=== PATIENT | male | born 1960 | race Caucasian/White ===

== ENCOUNTER → 2021-02-24 15:16 | Outpatient (BNVA) | payer MEDICAID, SELFPAY | PROVIDERS: Visit Provider Nurse Practitioner Family | DX: R76.8 Other specified abnormal immunological findings in serum (principal); Z87.898 Personal history of other specified conditions; F17.200 Nicotine dependence, unspecified, uncomplicated | CPT/HCPCS: 80053; 86705; 86706; 86709; 86803; 87340; 87522; 87902 ==

== ENCOUNTER → 2021-03-16 13:00 | Outpatient (BNVA) | payer MEDICAID, SELFPAY | PROVIDERS: Visit Provider Psychiatry & Neurology Psychiatry | DX: F15.20 Other stimulant dependence, uncomplicated (principal); F11.20 Opioid dependence, uncomplicated | CPT/HCPCS: 99204 ==

== ENCOUNTER 2024-10-02 11:59 | Inpatient (IN) | payer MEDICAID, SELFPAY ==
[2024-10-02] VITALS (11 sets, daily range): BP systolic 123–158; BP diastolic 54–78; PULSE 60–79; RESP 14–22; TEMP 36.6–37.4; O2SAT 74–97; BMI 22.6
--- OUTSIDE RECORDS SUMMARY | 2024-10-02 12:05 | XMS_ITS | Encounter Summary ---
Author Organization [email or web address] [facility] Address [address] [facility] Attn: Epic Prelude ADT NEDA SHAFER [address] Care Team Providers Care It Systems Analyst Consultant Name Role Phone Gui Wong Primary Care Provider Unavailabl e Encounter Details Date Type Department Care Team (Late st Contact Info) Description 09/27/2000 Outpatient Historical Dano Glass MD [address] [place] [address] Social History Tobacco Use Types Packs/Day Years Used Date Smoking Tobacco: Never Assessed Sex and Gender Information Value Date Recorded Sex Assigned at Not on file 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
--- OUTSIDE RECORDS SUMMARY | 2024-10-02 12:05 | XMS_ITS | Encounter Summary ---
Author Organization [facility] Address [address] [place] [address] Care Team Providers Care Music Producer Name Role Phone Gui Wong Primary Care Provider Unavailabl e Reason for Referral * Outpatient Services (Routine) - Closed Specialty Diagnoses / Procedures Referred By Contac t Referred To Contact Diagnoses Neck pain Low back pain Procedures MRI LUMBAR WO CONTRAST [facility] Mobile MRI [address] [place] [address] Phone: tel: fax: Referral ID Status Reason Start Date Expiration Date Visits Re quested Visits Authorized [id number] Closed 09/29/2009 03/28/2010 1 1 * Outpatient Services (Routine) - Closed Specialty Diagnoses / Procedures Referred By Contac t Referred To Contact Diagnoses Neck pain Procedures MRI CERVICAL WO CONTRAST [facility] MRI [address] [place] [address] Phone: tel: fax: Referral ID Status Reason Start Date Expiration Date Visits Re quested Visits Authorized [id number] Closed 09/29/2009 03/28/2010 1 1 Encounter Details Date Type Department Care Team (Late st Contact Info) Description 09/29/2009 Ancillary Orders [facility] MRI [address] [place] [address] [facility], External Provider [address] [place] [id number] Neck Pain; Low Back Pain Social History Tobacco Use Types Packs/Day Years Used Date Smoking Tobacco: Never Assessed Sex and Gender Information Value Date Recorded Sex Assigned at Not on file 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 Mild disc protrusion on the left at L4-L5 could cause intermittent impingement upon the left L4 and/or L5 nerves. 2. Mild central disc protrusion is present at L5-S1. Narrative 09/30/2009 12:42 PM CDT Exam: MRI LUMBAR WO CONTRAST Date/Time of Exam: Sep 30, 2009 11:21:00 AM History: NECK PAIN. Technique: MRI of the lumbar spine was performed without the administration of intravenous contrast. The lumbar spine is normal in sagittal alignment. The cauda equina and conus medullaris appear normal. No intradural disease is present. STIR images show no sites of abnormal signal throughout the lumbar spine. The paraspinal tissues are unremarkable. L1-L2: Normal. L2-L3: Normal. L3-L4: Normal. L4-L5: A moderate diffuse bulge of the disc is present. Small disc extrusion is present in the left foraminal zone causing mild foraminal and recess stenoses. L5-S1: Small central disc protrusion is present. Procedure Note Garrick Bhatti MD - 09/30/2009 Exam: MRI LUMBAR WO CONTRAST Date/Time of Exam: Sep 30, 2009 11:21:00 AM History: NECK PAIN. Technique: MRI of the lumbar spine was performed without the administration of intravenous contrast. The lumbar spine is normal in sagittal alignment. The cauda equina and conus medullaris appear normal. No intradural disease is present. STIR images show no sites of abnormal signal throughout the lumbar spine. The paraspinal tissues are unremarkable. L1-L2: Normal. L2-L3: Normal. L3-L4: Normal. L4-L5: A moderate diffuse bulge of the disc is present. Small disc extrusion is present in the left foraminal zone causing mild foraminal and recess stenoses. L5-S1: Small central disc protrusion is present. IMPRESSION Impression: 1. Mild disc protrusion on the left at L4-L5 could cause intermittent impingement upon the left L4 and/or L5 nerves. 2. Mild central disc protrusion is present at L5-S1. us External Provider [facility] MR ORDERABLES Final Resu lt * MRI CERVICAL WO CONTRAST (09/30/2009 11:21 AM CDT) Anatomical Region Laterality Modality Spine Magnetic Resonan ce 09/30/2009 10:2 6 AM CDT Narrative 09/30/2009 12:47 PM CDT Exam: MRI CERVICAL WO CONTRAST Date/Time of Exam: Sep 30, 2009 11:21:00 AM History: NECK PAIN. Technique: MRI of the cervical spine was performed without the administration of intravenous contrast. The cervical spine is normal in sagittal alignment. The posterior fossa has a normal appearance. The foramen magnum and cervical cord appear normal. No intradural disease is present. STIR images show no sites of abnormal signal. The paraspinal tissues are show a 14 mm lesion posteriorly in the right lobe of the thyroid. Skull base to C3: Normal. C3-C4: Unremarkable. C4-C5: Normal. C5-C6: Moderate diffuse spondylosis is present. Moderate bilateral foraminal stenoses are present. C6-C7: Moderate diffuse spondylosis is present causing mild bilateral foraminal stenoses. C7-T1: Unremarkable. Impressions: 1. Degenerative disc changes and moderate spondylosis are present at C5-C6 and C6-C7. Moderate foraminal stenoses are present at C5-C6 and mild foraminal stenoses are present at C6-C7. 2. A 14 mm lesion is present in the right lobe of the thyroid gland. Further evaluation and followup with ultrasound might be worthwhile. Procedure Note Garrick Bahtti MD - 09/30/2009 Exam: MRI CERVICAL WO CONTRAST Date/Time of Exam: Sep 30, 2009 11:21:00 AM History: NECK PAIN. Technique: MRI of the cervical spine was performed without the administration of intravenous contrast. The cervical spine is normal in sagittal alignment. The posterior fossa has a normal appearance. The foramen magnum and cervical cord appear normal. No intradural disease is present. STIR images show no sites of abnormal signal. The paraspinal tissues are show a 14 mm lesion posteriorly in the right lobe of the thyroid. Skull base to C3: Normal. C3-C4: Unremarkable. C4-C5: Normal. C5-C6: Moderate diffuse spondylosis is present. Moderate bilateral foraminal stenoses are present. C6-C7: Moderate diffuse spondylosis is present causing mild bilateral foraminal stenoses. C7-T1: Unremarkable. Impressions: 1. Degenerative disc changes and moderate spondylosis are present at C5-C6 and C6-C7. Moderate foraminal stenoses are present at C5-C6 and mild foraminal stenoses are present at C6-C7. 2. A 14 mm lesion is present in the right lobe of the thyroid gland. Further evaluation and followup with ultrasound might be worthwhile. us External Provider [facility] MR ORDERABLES Final Resu lt documented in this encounter Visit Diagnoses Diagnosis Neck pain Cervicalgia Low back pain Lumbago documented in this encounter Care Teams Music Producer Relationship Specialty Start Date End Date Gui Wong NO ADDRESS ON FILE PCP - General 03/23/14 05/01/16 documented as of this encounter
--- OUTSIDE RECORDS SUMMARY | 2024-10-02 12:05 | XMS_ITS | Encounter Summary ---
Author Organization [facility] Address [address] [place] [address] Care Team Providers Care Supervisor Pipeline Name Role Phone Gui Wong Primary Care Provider Unavailabl e Encounter Details Date Type Department Care Team (Late st Contact Info) Description 06/16/2014 Ancillary Orders [facility] Admitting [address] [place] [address] Beth Caraballo, [address] [place], [place] [id number] Neck pain (Primary Dx); Lumbar pain Social History Tobacco Use Types Packs/Day Years Used Date Smoking Tobacco: Every Day Cigarettes 1 40 Smokeless Tobacco: Never Alcohol Use Standard Drinks/Week Comments Yes 0 (1 standard drink = 0.6 oz pur e alcohol) beer Sex and Gender Information Value Date Recorded Sex Assigned at Not on file 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 Vertebral body and disc space heights are maintained. There is mild sclerosis apophyseal joints at L5-S1. IMPRESSION 1. mild osteoarthritis 2. no acute changes seen Procedure Note Donald Silva MD - 06/16/2014 PROCEDURE XR LUMBAR SPINE, 3 views, 16 Jun 2014 DESCRIPTION AP and lateral lumbar spine views and collimated lateral L5-S1 projection show no acute fracture or spondylolisthesis. Vertebral body and disc space heights are maintained. There is mild sclerosis apophyseal joints at L5-S1. IMPRESSION 1. mild osteoarthritis 2. no acute changes seen [facility] DIAGNOSTIC IMAGING ORDERA BLES Final Result * XR CERVICAL SPINE 2 OR 3 VIEWS (06/16/2014 10:54 AM CDT) Anatomical Region Laterality Modality Spine Computed Radiogr aphy 06/16/2014 10:4 1 AM CDT Narrative 06/16/2014 11:51 AM CDT PROCEDURE CERVICAL SPINE SERIES, 3 views, 16 Jun 2014 DESCRIPTION AP, lateral, and open-mouth odontoid views of the cervical spine were obtained. Alignment is maintained. Vertebral body and disc space heights appear normal. There is some anterior osteophyte and lower cervical levels and sclerosis of the apophyseal joints at C7-T1. On the open-mouth odontoid view, no loss of alignment is seen. The dens and C-1 are partially obscured by dentition and the occiput, although no fracture is seen. Screw and plate fixation of the right mandibular body is noted. IMPRESSION no no acute changes seen Procedure Note Donald Silva MD - 06/16/2014 PROCEDURE CERVICAL SPINE SERIES, 3 views, 16 Jun 2014 DESCRIPTION AP, lateral, and open-mouth odontoid views of the cervical spine were obtained. Alignment is maintained. Vertebral body and disc space heights appear normal. There is some anterior osteophyte and lower cervical levels and sclerosis of the apophyseal joints at C7-T1. On the open-mouth odontoid view, no loss of alignment is seen. The dens and C-1 are partially obscured by dentition and the occiput, although no fracture is seen. Screw and plate fixation of the right mandibular body is noted. IMPRESSION no no acute changes seen [facility] BLES Final Result documented in this encounter Visit Diagnoses Diagnosis Neck pain- Primary Cervicalgia Lumbar pain Lumbago Neck pain Cervicalgia Lumbar pain Lumbago Neck pain Cervicalgia Lumbar pain Lumbago documented in this encounter Care Teams Supervisor Pipeline Relationship Specialty Start Date End Date Gui Wong NO ADDRESS ON FILE PCP - General 03/23/14 05/01/16 documented as of this encounter
--- OUTSIDE RECORDS SUMMARY | 2024-10-02 12:05 | XMS_ITS | Encounter Summary ---
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
--- OUTSIDE RECORDS SUMMARY | 2024-10-02 12:05 | XMS_ITS | Encounter Summary ---
Author Organization [facility] Address [address] [place] [address] Care Team Providers Care Silk Screen Etcher Name Role Phone Gui Wong Primary Care Provider Unavailabl e Encounter Details Date Type Department Care Team (Late st Contact Info) Description 09/29/2009 Ancillary Orders [facility] MRI [address] [place] [address] [facility], External Provider [address] [place] [address] Social History Tobacco Use Types Packs/Day Years Used Date Smoking Tobacco: Never Assessed Sex and Gender Information Value Date Recorded Sex Assigned at Not on file 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
--- OUTSIDE RECORDS SUMMARY | 2024-10-02 12:05 | XMS_ITS | Encounter Summary ---
Author Organization [employer] [facility] Address [address] [place] [address] Care Team Providers Care Blind Slat Stapling Machine Operator Name Role Phone Gui Wong Primary Care Provider Unavailabl e Encounter Details Date Type Department Care Team (Latest Contact Info) Description 08/14/2004 Outpatient Historical [facility] [address] 

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
--- OUTSIDE RECORDS SUMMARY | 2024-10-02 12:05 | XMS_ITS | Encounter Summary ---
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
--- OUTSIDE RECORDS SUMMARY | 2024-10-02 12:05 | XMS_ITS | Encounter Summary ---
Author Organization [facility] Address [address] [facility] Attn: Epic Prelude ADT NEDA SHAFER [address] Care Team Providers Care Railroad Car Loader Name Role Phone Gui Wong Primary Care Provider Unavailabl e Encounter Details Date Type Department Care Team (Late st Contact Info) Description 11/28/2001 Outpatient Historical Jacek Naik MD [address] [facility] [address] [place] [id number] Social History Tobacco Use Types Packs/Day Years Used Date Smoking Tobacco: Never Assessed Sex and Gender Information Value Date Recorded Sex Assigned at Not on file 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
--- OUTSIDE RECORDS SUMMARY | 2024-10-02 12:05 | XMS_ITS | Encounter Summary ---
Author Organization [facility] Address [address] 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
--- OUTSIDE RECORDS SUMMARY | 2024-10-02 12:05 | XMS_ITS | Encounter Summary ---
Author Organization [facility] Address [address] [place] [address] Care Team Providers Care Roller Stitcher Name Role Phone Gui Wong Primary Care Provider Unavailabl e Encounter Details Date Type Department Care Team (Late st Contact Info) Description 04/18/2002 Outpatient Historical [facility] W[facility] Care [address] 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
--- OUTSIDE RECORDS SUMMARY | 2024-10-02 12:05 | XMS_ITS | Encounter Summary ---
Author Organization [employer] [facility] Address [address] [place] [address] Care Team Providers Care Supervisor Propellant Charge Loading Name Role Phone Gui Wong Primary Care Provider Unavailabl e Encounter Details Date Type Department Care Team (Late st Contact Info) Description 05/17/2007 Outpatient Historical [facility] [address] 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
--- OUTSIDE RECORDS SUMMARY | 2024-10-02 12:05 | XMS_ITS | Clinical Summary ---
Author Organization [facility] 1 [address] [facility] Address [address] [place] [address] Phone Care Team Providers Care Drop Wire Aliner Name Role Phone Unavailable Primary Care Provider Unavailabl e Allergies Active Allergy Reactions Criticality Noted Date Comments Fluoxetine Hallucination Low 03/23/2014 Heil Hallucination Low 03/23/2014 Medications oxyCODONE-aceta minophen (PERCOCET) 5-325 mg tablet Take 1 Tablet by mouth every 4 hours as needed for Pain, Moderate Take for severe pain only. Max Daily Amount: 6 Tablets 20 Tablet None 05/02/2016 Active diazePAM (VALIUM) 10 mg tablet Take 10 mg by mouth daily at bedtime. 05/02/2016 Active methadone (DOLOPHINE) 10 mg Tablet Take 10 mg by mouth every 6 hours. 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 Gender Identity Not on file Sexual Orientation Not on file Last Filed Vital Signs Vital Sign Reading Time Taken Comments Blood Pressure 142/81 05/02/2016 1:15 PM CDT Pulse - - Temperature 36.7 C (98 F) 05/02/2016 1:15 PM CDT Respiratory Rate 20 05/02/2016 1:15 PM CDT Oxygen Saturation - - Inhaled Oxygen Concentration - - Weight 65.8 kg (145 lb) 05/02/2016 10:19 AM CDT Height 170.2 cm (5' 7 ) 05/02/2016 10:19 AM CDT Body Mass Index 22.71 05/02/2016 10:19 AM CDT Plan of Treatment Health Maintenance Due Date Last Done Comments COLORECTAL SCREENING 11/26/2007 Colorectal Cancer Screening 11/26/2007 FIT-DNA Q 3 years 11/26/2007 FIT/FOBT Q 1 year 11/26/2007 Flex Sig/CT Colonography Q 5 years 11/26/2007 ZOSTER VACCINE (1 of 2) 2012 INFLUENZA VACCINE (#1) 2024 DTAP/TDAP/TD VACCINES (2 - Td or Tdap) 05/02/2026, 08/15/2004 RSV VACCINE (60+ or ) (1 - 1-dose 75+ series) 2037 Medical Devices Implanted Type Area Websphere Architect Device Identifier Shelf Expiration Date Model / Serial / Lot Plate Description:plate in jaw
--- OUTSIDE RECORDS SUMMARY | 2024-10-02 12:05 | XMS_ITS | Encounter Summary ---
Author Organization [facility] Address [address] [place] [address] Care Team Providers Care Dinkey Engine Operator Name Role Phone Gui Wong Primary Care Provider Bernardo corey Encounter Details Date Type Department Care Team (Latest Contact Info) Description 08/28/2000 Outpatient Historical [facility] General and Trauma Surgery-[address] [place] [address] Fabricio Vigil MD NO ADDRESS ON FILE Follow-up examination, following unspecified surgery (Primary Dx) Social History Tobacco Use Types Packs/Day Years Used Date Smoking Tobacco: Never Assessed Sex and Gender Information Value Date Recorded Sex Assigned at Not on file 

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
--- OUTSIDE RECORDS SUMMARY | 2024-10-02 12:05 | XMS_ITS | Encounter Summary ---
Author Organization [facility] Address [address] [place] [address] Care Team Providers Care Teletypesetter Name Role Phone Gui Wong Primary Care Provider Unavailabl e Encounter Details Date Type Department Care Team (Latest Contact Info) Description 05/19/2005 Outpatient Historical [facility] Imaging Services [address] [place] [address] Arabella Espinosa MD [address] [place] [address] Abnormal Involuntary Movements (Primary Dx) Social History Tobacco Use Types Packs/Day Years Used Date Smoking Tobacco: Never Assessed Sex and Gender Information Value Date Recorded Sex Assigned at Not on file 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 REASON FOR THIS STUDY: Worsening spasticity, difficulty walking. FINDINGS: The T1-weighted images show no structural lesions throughout the brain. No congenital or abnormalities are appreciated. The intracranial flow voids are normal. The posterior fossa has a normal appearance of the brain stem and cerebellum. The basal ganglia, white matter tracts, and cortex appear normal. FLAIR images show no foci of abnormal signal throughout the brain. DWI images are unremarkable. Intravenous contrast images show no areas of abnormal enhancement and a normal appearance of the meninges. IMPRESSION: No appreciable disease. [facility] Dictated By: Garrick Bhatti M.D. Electronically Signed By: Garrick Bhatti M.D. Date Signed: 05/19/05 [facility] Procedure Note Provider, Historical - 12/31/2008 MRI OF THE BRAIN BEFORE AND AFTER INTRAVENOUS CONTRAST DATE: 05/19/2005. REASON FOR THIS STUDY: Worsening spasticity, difficulty walking. FINDINGS: The T1-weighted images show no structural lesions throughout the brain.No congenital or abnormalities are appreciated. The intracranial flow voids are normal.The posterior fossa has a normal appearance of the brain stem and cerebellum. The basal ganglia, whitematter tracts, and cortex appear normal. FLAIR images show no foci of abnormal signal throughout thebrain. DWI images are unremarkable. Intravenous contrast images show no areas of abnormal enhancement and anormal appearance of the meninges. IMPRESSION: No appreciable disease. [facility] Dictated By: Garrick Bhatti M.D. Electronically Signed By: Garrick Bhatti M.D. Date Signed: 05/19/05 ELYSSA Arabella Espinosa MD MR ORDERABLES Final R esult documented in this encounter Visit Diagnoses Diagnosis Abnormal involuntary movements(781.0)- Primary Abnormal involuntary movements documented in this encounter Care Teams Teletypesetter Relationship Specialty Start Date End Date Gui Wong ADDRESS ON FILE PCP - General 03/23/14 05/01/16 documented as of this encounter
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
--- OUTSIDE RECORDS SUMMARY | 2024-10-02 12:05 | XMS_ITS | Encounter Summary ---
Author Organization [facility] Address [address] [facility] Attn: Epic Prelude ADT [place] SHAFER [address] Care Team Providers Care Cartridge Gauger Name Role Phone Gui Wong Primary Care Provider Unavailabl e Encounter Details Date Type Department Care Team (Late st Contact Info) Description 11/29/2001 Inpatient Historical Jacek Naik MD [address] [facility] [address] [place] [id number] Social History Tobacco Use Types Packs/Day Years Used Date Smoking Tobacco: Never Assessed Sex and Gender Information Value Date Recorded Sex Assigned at Not on file 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
--- OUTSIDE RECORDS SUMMARY | 2024-10-02 12:05 | XMS_ITS | Encounter Summary ---
Author Organization [facility] Address [address] [place] [address] Care Team Providers Care Tack Picker Name Role Phone Gui Wong Primary Care Provider Unavailabl e Encounter Details Date Type Department Care Team (Late st Contact Info) Description 03/18/2002 Outpatient Historical [facility] Wound Care [address] [place] [address] Jacek Naik MD [address] [address] Social History Tobacco Use Types Packs/Day Years Used Date Smoking Tobacco: Never Assessed Sex and Gender Information Value Date Recorded Sex Assigned at Not on file Legal Sex Male 6:07 AM GROUND HAND Gender Identity Not on file Sexual Orientation Not on file documented as of this encounter Plan of Treatment Not on file documented as of this encounter Visit Diagnoses Not on filedocumented in this encounter Care Teams Tack Picker Relationship Specialty Start Date End Date Gui Wong NO ADDRESS ON FILE PCP - General 03/23/14 05/01/16 documented as of this encounter
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
--- OUTSIDE RECORDS SUMMARY | 2024-10-02 12:05 | XMS_ITS | Clinical Summary ---
Author Organization [facility] Address [address] [place] [address] Care Team Providers Care Name Role Phone Unavailable Primary Care Provider Unavailabl e Allergies Active Allergy Reactions Criticality Noted Date Comments Fluoxetine Hallucination Low 03/23/2014 [place] Hallucination Low 03/23/2014 Medications methadone (DOLOPHINE) 10 mg Tablet Take 10 mg by mouth every 6 hours. Active diazePAM (VALIUM) 10 mg tablet Take 10 mg by mouth daily at bedtime. Active oxyCODONE-aceta minophen (PERCOCET) 5-325 mg tablet Take 1 Tablet by mouth every 4 hours as needed for Pain, Moderate Take for severe pain only. Max Daily Amount: 6 Tablets 20 Tablet None 05/02/2016 Active Immunizations Immunization Administration Dates Next Due (ADACEL/BOOSTRIX)(10 YR UP) TDAP VACCINE, 0.5ML, IM 05/02/2016 (TDVAX)(7 YRS UP) TETANUS AN D DIPHTHERIA TOXOIDS, ADSORBED (2 LF OF TETANUS TOXOID AND 2 LF OF DIPHTHERIA TOXOID), 0.5ML (PF), IM 08/15/2004 Social History Tobacco Use Types Packs/Day Years Used Date Smoking Tobacco: Every Day Cigarettes 1 40 Smokeless Tobacco: Never Tobacco Cessation:Ready to Q uit: No; Counseling Given: Yes Alcohol Use Standard Drinks/Week Comments Yes 0 (1 standard drink = 0.6 oz pur e alcohol) beer Sex and Gender Information Value Date Recorded Sex Assigned at Not on file 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
--- NOTE | 2024-10-02 12:06 | XR_ITS ---
WS: [id number] Portable AP upright chest, 10/02/2024 Clinical Data: fall/cp Comparison: Two-view chest, 07/16/2015 Findings: No nodules, masses or effusions are seen. The heart is normal. The pulmonary vascularity is not increased. No pneumonia or pneumothorax is seen. There is minimal patchy opacity in the right middle lobe may represent atelectasis and less likely pneumonia. The aortic arch shows calcification and tortuosity. There is a dextroscoliosis. XR/XR chest 1V portable [id number] Impression: 1. Minimal patchy opacity in right middle lobe which may represent atelectasis or less likely pneumonia. 2. Atherosclerosis.
--- NOTE | 2024-10-02 12:13 | ED_ITS ---
HPI - Fall 2 General: Chief Complaint: Fall Stated Complaint: Fall, Chest/Rib Pain LT Side Time Seen by Provider: 10/02/24 12:02 Source: patient and EMS Mode of arrival: EMS Limitations: no limitations History of Present Illness: 63-year-old male states he had a fall 2 days ago. He states that he landed on the left side of his chest and has been having some chest pain since then. He states that he has chronic neck pain but the neck pain is worsened since the fall and he is unsure if he had hit his head when he fell as well. He has had some low-grade fevers he says he has had increased cough as well. Denies any vomiting or diarrhea Associated symptoms-after fall: Reports chest pain, headache(s) and neck pain; Denies abdominal pain Related Data Home Medications ?Medication ?Instructions ?Recorded ?Confirmed No Known Home Medications 10/02/2409/14 Allergies Allergy/AdvReac Type Severity Reaction Status Date / Time fluoxetine (From Prozac) Allergy altered Verified 03/16/21 13:50 mental status lithium Allergy altered Verified 03/16/21 13:50 mental status Review of Systems 2 Const: Denies: chills, body aches or change in appetite ENMT: Denies: throat pain or dental pain Card: Reports: chest pain Resp: Reports: non-productive cough; Denies: dyspnea GI: Denies: abdominal pain, nausea, vomiting or diarrhea Musc: Reports: neck pain; Denies: back pain Skin/Breast: Denies: rash Neuro: Reports: headache(s) PFS ED 2 PFSH: Medical History Hepatitis C antibody positive in blood Social History Smoking and tobacco/nicotine status: current every day tobacco/nicotine user cigarettes Packs smoked per day: 0.33 Years cigarettes smoked: 45 Quit status (tobacco/nicotine): has tried quititng Number of times tried to quit tobacco: 20 Second hand smoke exposure: No Physical Exam 2 Const: COMMON NORMALS: patient oriented x3 HENMT: COMMON NORMALS: normocephalic and atraumatic HEAD & SCALP: n ormocephalic and atraumatic Eye: COMMON NORMALS: conjunctivae normal CONJUNCTIVA: Yes conjunctivae normal Neck/C-Spine: OTHER: in c collar Chest: COMMONS NORMALS: normal inspection of the chest OTHER: tenderness over left side of chest Resp: COMMON NORMALS: No retractions and No use of accessory muscles A USCULTATION: crackles Cardio: COMMON NORMALS: regular rate, regular rhythm and No murmurs present (Cardio) RATE: regular rate RHYTHM: regular rhythm GI: COMMON NORMALS: Normal to inspection, nondistended, normoactive bowel sounds present, Soft to palpation, non-tender and no masses PALPATION: Yes Soft to palpation Extremity: COMMON NORMALS: normal to inspection and full ROM Neuro: COMMON NORMALS: patient oriented x3, moves all extremities and no focal motor deficits Psych: COMMON NORMALS: mental status grossly normal, Normal thought process present and cooperative THOUGHT PROCESS: Normal thought process present Skin: COMMON NORMALS: no rashes or lesions noted and no wounds GENERAL SKIN EXAM: no rashes or lesions noted Course 2 Vital Signs: Vital signs: Vital Signs Temperature 99.3 F 10/02/24 12:05 Pulse Rate 78 10/02/24 15:00 Respiratory Rate 14 10/02/24 15:00 Blood Pressure 150/72 10/02/24 15:00 Pulse Oximetry 93 10/02/24 15:00 Oxygen Delivery Me thod Room Air 10/02/24 15:00 MDM - Fall Medical Decision Making Patient presents here with pneumonia and has had fever along with cough shortness of breath he had also had a recent fall imaging shows no imaging from the fall CT does show pneumonia does have an elevated white count did give sepsis bolus along with antibiotics spoke to hospitalist will admit Medical Records I reviewed the patient's medical records. Lab Data I reviewed the patient's lab results. 10/02/24 12:47 10/02/24 12:47 Radiology Impressions Chest X-Ray 10/02/24 12:06 Impression: 1. Minimal patchy opacity in right middle lobe which may represent atelectasis or less likely pneumonia. 2. Atherosclerosis. Cervical Spine CT 10/02/24 12:46 IMPRESSION: 1. No acute cervical spine fracture. 2. Advanced degenerative disc disease at C6-7. 3. Multilevel foraminal stenoses and central stenosis as above. Chest CT 10/02/24 12:46 IMPRESSION: 1. Large areas of dense opacification and subsolid opacification involving the RIGHT middle and RIGHT lower lobes. Partial atelectasis of the RIGHT middle lobe. 2. Intraluminal opacification with secretions in the bronchial tree of the RIGHT middle and RIGHT lower lobe arteries opacification begins in the bronchus intermedius. 3. Mildly reactive RIGHT paratracheal lymph node 1.7 cm. 4. Recommend follow-up chest CT imaging to resolution. Head CT 10/02/24 12:46 IMPRESSION: Negative head CT. Laboratory Results WBC 20.35 10^3/uL (3.29-11.43) H 10/02/24 12:47 RBC 5.11 10^6/uL (3.85-5.65) 10/02/24 12:47 Hgb 15.20 g/dL (11.27-16.99) 10/02/24 12:47 Hct 45.4 % (37-53) 10/02/24 12:47 MCV 88.8 fl (82-101) 10/02/24 12:47 MCH 29.7 pg (27-33) 10/02/24 12:47 MCHC 33.5 g/dL (30-55) 10/02/24 12:47 RDW 12.5 % (12.1-15.1) 10/02/24 12:47 Plt Count 173 10^3/cmm (157-399) 10/02/24 12:47 MPV 11.4 fL (7.4-10.4) H 10/02/24 12:47 Neut % (Auto) 86.6 % 10/02/24 12:47 Lymph % (Auto) 7.7 % 10/02/24 12:47 Fajardo % (Auto) 4.9 % 10/02/24 12:47 Eos % (Auto) 0.0 % 10/02/24 12:47 Baso % (Auto) 0.3 % 10/02/24 12:47 Neut # (Auto) 17.61 10^3/uL (1.8-7.7) H 10/02/24 12:47 Lymph # (Auto) 1.6 10^3/uL (0.8-4.8) 10/02/24 12:47 Fajardo # (Auto) 1.0 10^3/uL (0.2-0.9) H 10/02/24 12:47 Eos # (Auto) 0.0 10^3/uL (0.0-0.8) 10/02/24 12:47 Baso # (Auto) 0.1 10^3/uL (0.0-0.1) 10/02/24 12:47 Nucleated RBC % (auto) 0 % 10/02/24 12:47 Nucleated RBCs # 0.0 /100WBC 10/02/24 12:47 Sodium 138 mmol/L (136-145) 10/02/24 12:47 Potassium 4.4 mmol/L (3.5-5.1) 10/02/24 12:47 Chloride 99 mmol/L (98-107) 10/02/24 12:47 Carbon Dioxide 27 mmol/L (22-29) 10/02/24 12:47 Anion Gap 16.4 (5-19) 10/02/24 12:47 BUN 13 mg/dL (8-23) 10/02/24 12:47 Creatinine 0.8 mg/dL (0.7-1.2) 10/02/24 12:47 GFR Calculation 98.3 mL/min (90-130) 10/02/24 12:47 Glucose 107 mg/dL (65-115) 10/02/24 12:47 Calculated Osmolality 287 mOsm/kg (285-295) 10/02/24 12:47 Lactic Acid 2.4 mmol/L (0.5-2.2) H 10/02/24 12:47 Calcium 9.7 mg/dL (8.5-10.5) 10/02/24 12:47 Total Bilirubin 1.2 mg/dL (0.15-1.2) 10/02/24 12:47 AST 36 U/L (0-40) 10/02/24 12:47 ALT 39 U/L (0-41) 10/02/24 12:47 Alkaline Phosphatase 105 U/L (40-130) 10/02/24 12:47 Total Protein 7.5 g/dL (6.6-8.7) 10/02/24 12:47 Albumin 4.3 g/dL (3.5-5.2) 10/02/24 12:47 Globulin 3.2 g/dL (1.3-4.6) 10/02/24 12:47 All radiology interpretation(s) finalized by discharge Discharge Plan Discharge Patient Disposition: Admitted As Inpatient Clinical Impression: Pneumonia Condition: Stable Coding Level of Care Code ED [employer] Operator for Alka Spangler
--- NOTE | 2024-10-02 12:20 | ECG_ITS ---
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 Measurements Intervals [place] Rate: 60 P: 78 CA: 152 QRS: 79 QRSD: 84 T: 84 QT: 397 QTc: 399 Interpretive Statements SINUS RHYTHM Compared to ECG 07/14/2015 10:38:40 T-wave abnormality no longer present Electronically Signed On 10-05-2024 08:52:26 CDT by Rajinder Coffey M.D. [email or web address]
--- NOTE | 2024-10-02 12:46 | CT_ITS ---
WS: [id number] CT chest w con* [id number] HISTORY: fall TECHNIQUE: Axial imaging performed through the thorax. Coronal and sagittal reformats are submitted. All CT scans at [facility] use at least one of these dose optimization techniques: automated exposure control; mA and/or kV adjustment per patient size (includes targeted exams where dose is matched to clinical indication); or iterative reconstruction. CONTRAST: Omnipaque 350; 100 mL IV. DLP: 276.38 mGy.cm COMPARISON: Radiograph 10/02/2024. Prior CT 07/14/2015 Lungs and central airway: Hyperexpanded lungs from centrilobular emphysema. Dense multifocal consolidation consistent with pneumonia in the RIGHT middle and RIGHT lower lobes. Partial collapse of the RIGHT middle lobe. Pneumonia is dense consolidation and subsolid opacifications. LEFT lung is clear. There is significant opacification of the branching bronchial tree extending into the RIGHT middle and RIGHT lower lobes. Pleura: Normal. No pleural effusion. Heart and pericardium: Normal size heart with no pericardial effusion. Mediastinum and tab: Mildly hypervascular paratracheal lymph node at 1.7 cm. Vessels: Mild atherosclerosis aorta. Normal size pulmonary artery. Chest wall and lower neck: RIGHT thyroid nodule 1.6 x 2.0 cm. This can be further evaluated by thyroid ultrasound on an outpatient basis. Upper abdomen: Small hiatal hernia. No adrenal mass. Osseous structures: No destructive process. CT/CT chest w con* [id number] IMPRESSION: 1. Large areas of dense opacification and subsolid opacification involving the RIGHT middle and RIGHT lower lobes. Partial atelectasis of the RIGHT middle lo be. 2. Intraluminal opacification with secretions in the bronchial tree of the RIG HT middle and RIGHT lower lobe arteries opacification begins in the bronchus in termedius. 3. Mildly reactive RIGHT paratracheal lymph node 1.7 cm. 4. Recommend follow-up chest CT imaging to resolution.
--- NOTE | 2024-10-02 12:46 | CT_ITS ---
WS: [id number] CT HEAD NONCONTRAST HISTORY: fall TECHNIQUE: Contiguous axial imaging performed through the brain. Bone and soft tissue windows. Sagittal and coronal reformats reviewed. All CT scans at [facility] use at least one of these dose optimization techniques: automated exposure control; mA and/or kV adjustment per patient size (includes targeted exams where dose is matched to clinical indication); or iterative reconstruction. DLP: 1232.90 mGy.cm COMPARISON: None available. No acute intracranial hemorrhage, midline shift or mass effect. No atrophy or prior infarcts or herniation. Ventricles: Normal size with no hydrocephalus. Paranasal sinuses: As visualized are clear. Mastoid air cells: Well pneumatized. Calvarium and scalp: Skull is intact with no soft tissue edema or swelling. CT/CT head wo con* [id number] IMPRESSION: Negative head CT.
--- NOTE | 2024-10-02 12:46 | CT_ITS ---
WS: [id number] CT CERVICAL SPINE HISTORY: fall TECHNIQUE: Contiguous 2.0 mm axial imaging performed through the entire cervical spine. Sagittal and coronal reformats also performed. All CT scans at [facility] use at least one of these dose optimization techniques: automated exposure control; mA and/or kV adjustment per patient size (includes targeted exams where dose is matched to clinical indication); or iterative reconstruction. DLP: 1232.90 mGy.cm COMPARISON: None available. Straightening of the normal cervical lordosis. Severe degenerative disc disease at C7-T1. Mild disease and narrowing at C5-6 and C6-7. Facet joints remain normally aligned. Lateral masses of C1 and C2 are aligned. The odontoid is intact. C2-C3: Normal. C3-C4: Normal. C4-C5: Bilateral facet joint arthritis. Mild foraminal stenosis. C5-C6: Osteophytic ridging. Bilateral foraminal stenosis and facet arthritis. C6-C7: Marked osteophytic ridging. Osteophyte encroachment upon the ventral thecal sac and foramina. Mild central and bilateral foraminal stenosis and facet arthritis. C7-T1: Marked osteophytic ridging. Mild central and foraminal stenosis Normal paravertebral soft tissues. Biapical emphysema. CT/CT cervical spin wo con* [id number] IMPRESSION: 1. No acute cervical spine fracture. 2. Advanced degenerative disc disease at C6-7. 3. Multilevel foraminal stenoses and central stenosis as above.
[2024-10-02 12:59] LABS: Hematocrit 45.4 % (37-53); Hemoglobin 15.20 g/dL (11.27-16.99); Mean Corpuscular HGB Conc 33.5 g/dL (30-55); Mean Corpuscular Hemoglobin 29.7 pg (27-33); Mean Corpuscular Volume 88.8 fl (82-101); Nucleated Red Blood Cells % 0 %; Platelet Count 173 10^3/cmm (157-399); Red Blood Count 5.11 10^6/uL (3.85-5.65); White Blood Count 20.35 10^3/uL (3.29-11.43)
[2024-10-02 13:16] LABS: Alanine Aminotransferase 39 U/L (0-41); Albumin Level 4.3 g/dL (3.5-5.2); Alkaline Phosphatase 105 U/L (40-130); Anion Gap 16.4 (5-19); Aspartate Amino Transferase 36 U/L (0-40); Blood Urea Nitrogen 13 mg/dL (8-23); Calcium 9.7 mg/dL (8.5-10.5); Carbon Dioxide 27 mmol/L (22-29); Chloride 99 mmol/L (98-107); Creatinine Clr Calc Pharmacy 91.7217; Globulin 3.2 g/dL (1.3-4.6); Glucose 107 mg/dL (65-115); Osmolality Calculated 287 mOsm/kg (285-295); Potassium 4.4 mmol/L (3.5-5.1); Sodium 138 mmol/L (136-145); Total Protein 7.5 g/dL (6.6-8.7)
[2024-10-02] MEDS: cefTRIAXone 1,000 mg SDV 1000 MG IVP (13:23)
[2024-10-02 13:30] LABS: Lactic Sepsis W/Reflex 2.4 mmol/L (0.5-2.2)
[2024-10-02] MEDS: iohexol 350 mg/mL 500 mL Btl (per mL) IV (14:08)
[2024-10-02] MEDS: ondansetron 2 mg/ML SDV 2 mL 4 MG IVP (14:53)
[2024-10-02] MEDS: morphine 4 mg/mL SDV 1 mL IVP (14:53)
[2024-10-02 14:56] LABS: Reflex Lactate Order REFLEX LACTIC ORDERD
[2024-10-02 15:48] LABS: Procalcitonin 0.09 ng/mL (0-0.5)
--- NOTE | 2024-10-02 16:24 | P.HP_ITS ---
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 He presented to the ER today because of difficulty in breathing. In the ER CT imaging was done which was consistent with right middle and lower lobe pneumonia without any fractures. On examination, he is lying comfortably in bed complaining of chest pain on taking a deep breath on room air saturating 90%. Review of Systems 2 General: Reports: 10 or more systems reviewed and unremarkable except in HPI and below Const: Denies: fever(s), chills, body aches, change in appetite, change in weight, malaise, night sweats, diaphoresis, change in sleep pattern, daytime sleepiness or snoring Eyes: Denies: change in vision, blurry vision, photophobia, eye discomfort or eye discharge ENMT: Denies: throat pain, enlarged tonsils, hoarseness, mouth pain, oral sores, dry mouth, tinnitus, nasal congestion or post nasal drip Card: Denies: chest pain, palpitations, irregular heart rhythm, edema, swelling of feet/ankles, lightheadedness, syncope, pre-syncope, dyspnea on exertion, orthopnea, leg pain with exertion or acrocyanosis Resp: Denies: dyspnea, productive cough, non-productive cough, wheezing, stridor, pain on inspiration, change in phlegm color, hemoptysis or chest congestion GI: Denies: abdominal pain, nausea, vomiting, hematemesis, coffee ground emesis, dysphagia, heartburn, diarrhea, constipation, bloating, GI cramping, change in bowel habits, pain on defecation, hematochezia or melena : Denies: flank pain, difficulty urinating, dysuria, urinary frequency, urinary urgency, urinary hesitancy, urinary dribbling, difficulty starting urination, change in urine stream, nocturia or hematuria Musc: Denies: neck pain, back pain, extremity pain, joint pain, joint swelling, joint redness, joint stiffness or limited range of motion Neuro: Denies: headache(s), numbness in extremities, weakness in extremities, sensory changes, lack of coordination, difficulty walking, frequent falls, dizziness, vertigo, confusion, Slurred speech present, difficulty communicating thoughts or seizure-like activity Psych: Denies: anxiety, depression, mood swings, panic attacks, hopelessness or irritability Endo: Denies: polyuria, polydipsia, tired all the time, cold intolerance, excessive sweating, flushing or heat intolerance [place]/Lymph: Denies: easy bruising or easy bleeding All/Imm: Denies: tongue swelling, facial swelling or acute wheezing Medications/Allergies Home Medications ?Medication ?Instructions ?Recorded ?Confirmed ?Last Taken ?Type No Known Home Medications 10/02/2409/14 Unknown History Allergies Allergy/AdvReac Type Severity Reaction Status Date / Time fluoxetine (From Prozac) Allergy altered Verified 03/16/21 13:50 mental status lithium Allergy altered Verified 03/16/21 13:50 mental status PFSH Acute 2 PFSH: Medical History (Updated 10/02/24 @ 16:29 by Pj Mae MD) Opioid use disorder, severe, on maintenance therapy Methamphetamine use disorder, severe Hepatitis C antibody positive in blood Social History (Updated 10/02/24 @ 17:02 by Pj Mae MD) Smoking and tobacco/nicotine status: current every day tobacco/nicotine user cigarettes Packs smoked per day: 0.33 Years cigarettes smoked: 45 Quit status (tobacco/nicotine): has tried quititng Number of times tried to quit tobacco: 20 Second hand smoke exposure: No Lives independently: Yes Housing: House Vitals/I&O/Wt Last Vital Signs Temp 99.3 F 10/02/24 12:05 Pulse 78 10/02/24 15:41 Resp 16 10/02/24 15:41 BP 139/73 10/02/24 15:41 Pulse Ox 93 10/02/24 15:00 O2 Del Method Room Air 10/02/24 15:41 10/02/24 10/02/24 10/02/24 06:59 14:59 22:59 Intake Total 1750 / 1750 Balance 1750 / 1750 Weight last 48 hrs Weight 68.039 kg Physical Exam 2 Narrative: General: No acute distress, AO x3, disheveled HEENT: PERRLA, pupils bilaterally equal and reactive Chest: Normal syllabus in the lower lung francois, coarse crackles present in right middle and lower zone with expiratory rhonchi CVS: S1-S2 regular, no murmurs, no tachycardia, no gallops, no rubs Abdomen: Soft, nontender, no organomegaly, bowel sounds present Neuro: No focal deficits, no facial deformity, AO x3, power 5/5 in all limbs Data 10/02/24 12:47 10/02/24 12:47 Micro: Microbiology 10/02/24 13:00 Blood Culture - Preliminary Blood SPECIMEN COLLECTED 10/02/24 13:00 Blood Culture - Preliminary Blood SPECIMEN COLLECTED A&P Assessment and plan 1. Aspiration pneumonia of right lower lobe due to vomit: Most likely in setting of possible aspiration around the fall. Check sputum culture, MRSA swab, blood culture, urine Legionella and bacterial antigen. Trend procalcitonin. Empirically start on IV ceftriaxone and oral azithromycin. If MRSA swab positive will add vancomycin. 2. Hypoxia: In setting of pneumonia. Supplementation keeping saturation over 90%. Plan: History of meth abuse: Check urine drug screen. Check hepatitis C, HIV. Untreated hepatitis C: Check hepatitis C levels. Depending on the levels will plan for further treatment. History of recent fall: No fracture seen on CT. Lidocaine patch. Tramadol 50 mg Q 6 hours as needed for pain control. Full code Regular diet Protonix for PUD prophylaxis Lovenox for DVT prophylaxis. PDMP PDMP Reviewed: Not Reviewed Attestations 2 Medical Necessity Statement*: Admission for more than 2 midnights oriented hypoxia in setting of aspiration pneumonia of right lower lobe. Diagnoses Aspiration pneumonia of right lower lobe due to vomit J69.0 Aspiration pneumonia type: due to vomit Laterality: right Lung location: lower lobe of lung Pneumonia type: aspiration pneumonia Hypoxia R09.02
[2024-10-02 16:52] LABS: Lactic Acid level (Lactate) 2.2 mmol/L (0.5-2.2)
--- NOTE | 2024-10-02 17:35 | PC.NURSE ---
This nurse took report from RAMSES Caraballo in ER at 1730.
--- NOTE | 2024-10-02 17:53 | XRR_ITS ---
PROCEDURE INFORMATION: Exam: XR Chest Exam date and time: 10/02/2024 5:56 PM Age: 63 years old Clinical indication: Other: Resp failure TECHNIQUE: Imaging protocol: Radiologic exam of the chest. Views: 1 view. COMPARISON: 1. CR XR chest 1V portable [id number] 10/02/2024 12:[address] chest w con* [id number] 10/02/2024 2:04 PM FINDINGS: Lungs: There is dense consolidation in the right lower and middle lobes. Left lung is clear. Pleural spaces: There is no pleural effusion or pneumothorax. Heart/Mediastinum: Cardiomediastinal contours are unremarkable. Bones/joints: Bones are unremarkable. XR/XR chest 1V portable [id number] IMPRESSION: Dense consolidation in the right middle lower lobes consistent with pneumonia (infection or aspiration), corresponding to the findings visible on chest CT today. Findings are markedly progressive since the chest radiograph 6 hours prior.
[2024-10-02] MEDS: methylPREDNISolone sod succ 125 mg/2 mL INJ IVP (18:23)
[2024-10-02 18:41] LABS: HIV 1 & 2 Antigen Non-Reactive (Non-Reactiv); Iron 20 ug/dL (59-158); Thyroid Stimulating Hormone 0.87 uIU/mL (0.27-4.20); Total Iron Binding Capacity 337 mcg/dl; Unsaturated Iron Binding 317 ug/dL (112-347)
[2024-10-02] MEDS: methylPREDNISolone sod succ 40 mg/mL INJ IVP (20:13)
[2024-10-02 20:28] LABS: Estmated Average Glucose 111; Hemoglobin A1C 5.5 % (4.0-6.0)
[2024-10-02 21:47] LABS: Hepatitis A Antibody IgM Non-Reactive (Nonreactive); Hepatitis B Surface Antigen Non-Reactive (Nonreactive)
[2024-10-03] VITALS (9 sets, daily range): BP systolic 117–130; BP diastolic 54–68; PULSE 54–77; RESP 14–18; TEMP 36.4–36.7; O2SAT 94–99
--- NOTE | 2024-10-03 01:45 | PC.NURSE ---
Pt educated on aspiration percautions with thin liquids during med pass, as he was given small amount of water to take his pill with. He was reminded of his low oxygen event during day shift, and that the day team suspected aspiration, to which he stated he wasnt aware of what that even was. Aspiration was then explained to the patient. Pt was told he was allowed small amounts of liquid or ice chips with medications till a speech eval/barium swallow could be obtained to ensure pt wasnt at risk for aspiration.
[2024-10-03 03:08] LABS: Glucose Urine UA 1+ (Normal); Nitrate Urine Negative (Negative); Specific Gravity, Urine 1.022 (1.005-1.030)
[2024-10-03 03:17] LABS: Add Urine Microscopic? YES
[2024-10-03] MEDS: methylPREDNISolone sod succ 40 mg/mL INJ IVP ×2 (03:20→12:37)
[2024-10-03 03:56] LABS: PCP Screen Urine Negative (Negative)
--- NOTE | 2024-10-03 04:06 | PC.NURSE ---
Pt hit call light requesting a meal. This aid educated PT on doctors orders for being NPO due to potential risk of aspiration. PT stated he had never aspirated before and can swallow just fine . Provided education on the risk of aspiration and that he was receiving a swallow study tomorrow.
[2024-10-03 05:30] LABS: Vitamin B12 404 pg/mL (232-1245)
[2024-10-03 06:25] LABS: Hematocrit 36.3 % (37-53); Hemoglobin 12.50 g/dL (11.27-16.99); Mean Corpuscular HGB Conc 34.4 g/dL (30-55); Mean Corpuscular Hemoglobin 29.7 pg (27-33); Mean Corpuscular Volume 86.2 fl (82-101); Nucleated Red Blood Cells % 0 %; Platelet Count 142 10^3/cmm (157-399); Red Blood Count 4.21 10^6/uL (3.85-5.65); White Blood Count 20.60 10^3/uL (3.29-11.43)
[2024-10-03 06:44] LABS: Cholesterol 114 mg/dL (0-200); HDL Cholesterol 59 mg/dL (60-100); Triglycerides 35 mg/dL (0-150)
[2024-10-03 06:47] LABS: Alanine Aminotransferase 28 U/L (0-41); Albumin Level 3.4 g/dL (3.5-5.2); Alkaline Phosphatase 81 U/L (40-130); Anion Gap 18.4 (5-19); Aspartate Amino Transferase 23 U/L (0-40); Blood Urea Nitrogen 13 mg/dL (8-23); Calcium 8.7 mg/dL (8.5-10.5); Carbon Dioxide 20 mmol/L (22-29); Chloride 100 mmol/L (98-107); Creatinine Clr Calc Pharmacy 89.0094; Globulin 2.6 g/dL (1.3-4.6); Glucose 222 mg/dL (65-115); Magnesium 1.7 mg/dL (1.7-2.3); Osmolality Calculated 287 mOsm/kg (285-295); Potassium 3.4 mmol/L (3.5-5.1); Sodium 135 mmol/L (136-145); Total Protein 6.0 g/dL (6.6-8.7)
[2024-10-03 06:52] LABS: Procalcitonin 3.33 ng/mL (0-0.5)
[2024-10-03 07:08] LABS: Slide Review Slide Review Perform
[2024-10-03 07:41] LABS: MRSA PCR OZH (swab) NOT DETECTED (Negative)
--- NOTE | 2024-10-03 08:59 | FL_ITS ---
WS: [id number] MODIFIED BARIUM SWALLOW TECHNIQUE: Modified barium swallow with speech therapy using multiple consistencies. FLUOROSCOPY TIME: 2min [id number] CLINICAL INFORMATION: Oropharyngeal dysphagia COMPARISON: None. FINDINGS: Multiple consistencies utilized. No evidence of emmanuel aspiration or penetration. Delayed transit of the barium tablet in the midesophagus which cleared after several minutes with additional fluid. Evidence of mild to moderate esophageal dysmotility with a small amount of esophageal reflux and spasm. No high-grade stricture visualized. Consider interval follow-up with endoscopy FL/FL barium swallow modifd [id number] IMPRESSION: 1. No evidence of emmanuel aspiration or penetration. 2. Esophageal dysmotility with mild spasm and delayed transit of the barium ta blet. This cleared with additional fluid. No visualized high-grade stricture. C onsider interval follow-up with endoscopy. 3. Small amount of esophageal reflux visualized.
--- NOTE | 2024-10-03 11:41 | P.DS_ITS ---
Discharge Providers Date of Admission: 10/02/24 17:20 Date of Discharge: October 03, 2024 Attending Provider at Admission: Pj Mae MD Attending Provider at Discharge: Pj Mae MD Diagnoses at Discharge Discharge Diagnosis 1. Aspiration pneumonia of right lower lobe due to vomit: 2. Hypoxia: 3. 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 He presented to the ER today because of difficulty in breathing. In the ER CT imaging was done which was consistent with right middle and lower lobe pneumonia without any fractures. On examination, he is lying comfortably in bed complaining of chest pain on taking a deep breath on room air saturating 90%. Patient was admitted to the hospital further evaluation and management of hypoxic respiratory failure in setting of pneumonia. He did have worsening oxygenation with concerns for aspiration. His oxygen supplementation gradually improved and is currently doing well on room air. Diet was advanced as per speech evaluation. Modified barium swallow was done. Urine drug screen was positive for meth, opiate and marijuana. It is believed his aspiration event on admission was most likely in setting of mild intoxication. He was also found to be positive for hepatitis C. RNA levels are currently awaited. Depending on her RNA levels, patient will be guided about following up as an outpatient with PCP regarding hep C treatment. On admission he was found to have flea infestation. He was treated as per protocol. His hospitalization was otherwise unremarkable. Patient responded well to the treatment and is back to his baseline mentation, oxygen requirement. He is been discharged on oral antibiotics with steroid taper for next 5 days with advised to follow-up with his primary care provider within next 1 week. Physical Exam Narrative: General: No acute distress, AO x3, disheveled HEENT: PERRLA, pupils bilaterally equal and reactive Chest: Normal syllabus in the lower lung francois, coarse crackles present in right middle and lower zone with expiratory rhonchi CVS: S1-S2 regular, no murmurs, no tachycardia, no gallops, no rubs Abdomen: Soft, nontender, no organomegaly, bowel sounds present Neuro: No focal deficits, no facial deformity, AO x3, power 5/5 in all limbs Discharge Data Studies Completed and Pending Completed Studies During Hospitalization Category Date Time Status CT cervical spin wo con* [id number] Stat Cat Scan 10/02/24 12:[address] chest w con* [id number] Stat Cat Scan 10/02/24 12:[address] head wo con* [id number] Stat Cat Scan 10/02/24 12:46 Completed XR chest 1V portable [id number] Stat Exams 10/02/24 12:06 Completed XR chest 1V portable [id number] Stat Exams 10/02/24 17:53 Completed Pending at discharge Category Date Time Status Modified barium swallow [FL barium swallow modifd [id number] Exams 10/03/24 08:59 Ordered ] Routine Blood Culture Stat Lab 10/02/24 13:00 Results Complete Blood Count w/Auto AM LABS Lab 10/04/24 04:00 Ordered Complete Blood Count w/Auto AM LABS Lab 10/05/24 04:00 Ordered Comprehensive Metabolic Panel AM LABS Lab 10/04/24 04:00 Ordered Comprehensive Metabolic Panel AM LABS Lab 10/05/24 04:00 Ordered Hepatitis C RNA Viral Load Qnt Routine Lab 10/02/24 22:24 Received Magnesium AM LABS Lab 10/04/24 04:00 Ordered Magnesium AM LABS Lab 10/05/24 04:00 Ordered Phosphorus AM LABS Lab 10/04/24 04:00 Ordered Phosphorus AM LABS Lab 10/05/24 04:00 Ordered Sputum Culture and Gram Stain Stat Lab 10/02/24 15:08 Uncollected Radiology Impressions Cervical Spine CT 10/02/24 12:46 IMPRESSION: 1. No acute cervical spine fracture. 2. Advanced degenerative disc disease at C6-7. 3. Multilevel foraminal stenoses and central stenosis as above. Chest CT 10/02/24 12:46 IMPRESSION: 1. Large areas of dense opacification and subsolid opacification involving the RIGHT middle and RIGHT lower lobes. Partial atelectasis of the RIGHT middle lobe. 2. Intraluminal opacification with secretions in the bronchial tree of the RIGHT middle and RIGHT lower lobe arteries opacification begins in the bronchus intermedius. 3. Mildly reactive RIGHT paratracheal lymph node 1.7 cm. 4. Recommend follow-up chest CT imaging to resolution. Head CT 10/02/24 12:46 IMPRESSION: Negative head CT. Chest X-Ray 10/02/24 17:53 IMPRESSION: Dense consolidation in the right middle lower lobes consistent with pneumonia (infection or aspiration), corresponding to the findings visible on chest CT today. Findings are markedly progressive since the chest radiograph 6 hours prior. Laboratory Results WBC 20.60 10^3/uL (3.29-11.43) H 10/03/24 05:56 RBC 4.21 10^6/uL (3.85-5.65) 10/03/24 05:56 Hgb 12.50 g/dL (11.27-16.99) 10/03/24 05:56 Hct 36.3 % (37-53) L 10/03/24 05:56 MCV 86.2 fl (82-101) 10/03/24 05:56 MCH 29.7 pg (27-33) 10/03/24 05:56 MCHC 34.4 g/dL (30-55) 10/03/24 05:56 RDW 12.6 % (12.1-15.1) 10/03/24 05:56 Plt Count 142 10^3/cmm (157-399) L 10/03/24 05:56 MPV 11.5 fL (7.4-10.4) H 10/03/24 05:56 Neut % (Auto) 91.5 % 10/03/24 05:56 Lymph % (Auto) 5.0 % 10/03/24 05:56 Towner % (Auto) 1.7 % 10/03/24 05:56 Eos % (Auto) 0.0 % 10/03/24 05:56 Baso % (Auto) 0.2 % 10/03/24 05:56 Neut # (Auto) 18.85 10^3/uL (1.8-7.7) H 10/03/24 05:56 Lymph # (Auto) 1.0 10^3/uL (0.8-4.8) 10/03/24 05:56 Towner # (Auto) 0.4 10^3/uL (0.2-0.9) 10/03/24 05:56 Eos # (Auto) 0.0 10^3/uL (0.0-0.8) 10/03/24 05:56 Baso # (Auto) 0.0 10^3/uL (0.0-0.1) 10/03/24 05:56 Nucleated RBC % (auto) 0 % 10/03/24 05:56 Nucleated RBCs # 0.0 /100WBC 10/03/24 05:56 Sodium 135 mmol/L (136-145) L 10/03/24 05:56 Potassium 3.4 mmol/L (3.5-5.1) L 10/03/24 05:56 Chloride 100 mmol/L (98-107) 10/03/24 05:56 Carbon Dioxide 20 mmol/L (22-29) L 10/03/24 05:56 Anion Gap 18.4 (5-19) 10/03/24 05:56 BUN 13 mg/dL (8-23) 10/03/24 05:56 Creatinine 0.8 mg/dL (0.7-1.2) 10/03/24 05:56 GFR Calculation 98.3 mL/min (90-130) 10/03/24 05:56 Glucose 222 mg/dL (65-115) H 10/03/24 05:56 Estimat Average Glucose 111 10/02/24 12:47 Hemoglobin A1c 5.5 % (4.0-6.0) 10/02/24 12:47 Calculated Osmolality 287 mOsm/kg (285-295) 10/03/24 05:56 Lactic Acid 2.4 mmol/L (0.5-2.2) H 10/02/24 12:47 Lactic Acid (Sepsis) 2.2 mmol/L (0.5-2.2) 10/02/24 16:17 Calcium 8.7 mg/dL (8.5-10.5) 10/03/24 05:56 Phosphorus 2.8 mg/dL (2.5-4.5) 10/03/24 05:56 Magnesium 1.7 mg/dL (1.7-2.3) 10/03/24 05:56 Iron 20 ug/dL (59-158) L 10/02/24 12:47 TIBC 337 mcg/dl 10/02/24 12:47 % Saturation 5.9 % (20-50) L 10/02/24 12:47 Unsat Iron Binding 317 ug/dL (112-347) 10/02/24 12:47 Total Bilirubin 0.7 mg/dL (0.15-1.2) 10/03/24 05:56 AST 23 U/L (0-40) 10/03/24 05:56 ALT 28 U/L (0-41) 10/03/24 05:56 Alkaline Phosphatase 81 U/L (40-130) 10/03/24 05:56 Total Protein 6.0 g/dL (6.6-8.7) L 10/03/24 05:56 Albumin 3.4 g/dL (3.5-5.2) L 10/03/24 05:56 Globulin 2.6 g/dL (1.3-4.6) 10/03/24 05:56 Triglycerides 35 mg/dL (0-150) 10/03/24 05:56 Cholesterol 114 mg/dL (0-200) 10/03/24 05:56 LDL Cholesterol, Calc 48 mg/dL (50-129) L 10/03/24 05:56 HDL Cholesterol 59 mg/dL (60-100) L 10/03/24 05:56 LDL/HDL Ratio 0.81 RATIO (0.00-3.22) 10/03/24 05:56 Cholesterol/HDL Ratio 1.93 mg/dL (1.0-5.00) 10/03/24 05:56 Vitamin B12 404 pg/mL (232-1245) 10/02/24 12:44 Folate 4.9 ng/mL (4.5-32.2) 10/03/24 05:56 Procalcitonin 3.33 ng/mL (0-0.5) H 10/03/24 05:56 TSH 0.87 uIU/mL (0.27-4.20) 10/02/24 12:47 Urine Color Bloomer (Yellow) A 10/03/24 01:38 Urine Appearance Clear (CLEAR) 10/03/24 01:38 Urine pH 5.0 (5-7) 10/03/24 01:38 Ur Specific [place] 1.022 (1.005-1.030) 10/03/24 01:38 Urine Protein Negative (Negative) 10/03/24 01:38 Urine Glucose (UA) 1+ (Normal) H 10/03/24 01:38 Urine Ketones Trace (Negative) 10/03/24 01:38 Urine Blood Negative (Negative) 10/03/24 01:38 Urine Nitrate Negative (Negative) 10/03/24 01:38 Urine Bilirubin Negative (Negative) 10/03/24 01:38 Urine Urobilinogen 1.0 mg/dL (Negative) 10/03/24 01:38 Ur Leukocyte Esterase Negative (Negative) 10/03/24 01:38 Urine RBC 0-2 /hpf (0-2) 10/03/24 01:38 Urine WBC 0-5 /hpf (0-5) 10/03/24 01:38 Ur Squamous Epith Cells 0-5 /hpf (0-5) 10/03/24 01:38 Amorphous Sediment Not Reportable 10/03/24 01:38 Urine Bacteria None seen /hpf (NONE) 10/03/24 01:38 Hyaline Casts 0.40 /lpf 10/03/24 01:38 Nasal MRSA (PCR) Not detected (Negative) 10/03/24 06:16 Urine Opiates Screen Positive ng/mL (Negative) H 10/03/24 01:38 Ur Barbiturates Screen Negative ng/mL (Negative) 10/03/24 01:38 Ur Phencyclidine Scrn Negative ng/mL (Negative) 10/03/24 01:38 Ur Amphetamines Screen Positive ng/mL (Negative) H 10/03/24 01:38 U Benzodiazepines Scrn Negative ng/mL (Negative) 10/03/24 01:38 Urine Cocaine Screen Negative ng/mL (Negative) 10/03/24 01:38 U Marijuana (THC) Screen Positive ng/mL (Negative) H 10/03/24 01:38 Hepatitis A IgM Ab Non-reactive (Nonreactive) 10/02/24 12:47 Hep Bs Antigen Non-reactive (Nonreactive) 10/02/24 12:47 Hep Bs Antibody < 3.5 (11.5-1000) L 10/02/24 12:47 Hep B Core Total Ab Non-reactive (Nonreactive) 10/02/24 12:47 Hepatitis C Antibody Reactive (Nonreactive) H 10/02/24 12:47 HIV 1&2 Ab & HIV 1 Ag Non-reactive (Non-Reactiv) 10/02/24 12:47 HIV 1&2 Antibody Non-reactive (Non-Reactiv) 10/02/24 12:47 Vitals Last Vital Signs Temp 98.0 F 10/03/24 11:19 Pulse 68 10/03/24 11:19 Resp 17 10/03/24 11:19 BP 117/55 10/03/24 11:19 Pulse Ox 98 10/03/24 11:19 O2 Del Method Room Air 10/03/24 11:19 O2 Flow Rate 3 10/03/24 07:51 Discharge Plan Discharge Patient Disposition: Home Condition: Stable Prescriptions: New levofloxacin 750 mg tablet 750 mg PO Q24H 5 Days Qty: 5 0RF amoxicillin-pot clavulanate 875-125 mg tablet 1 tab PO BID 5 Days Qty: 10 0RF prednisone 20 mg tablet 20 mg PO BID 5 Days Qty: 10 0RF Referrals: Elba Staton NP [Referring, Nurse Practitioner] - 10/08/24 2:15 pm Discharge Diet: As Directed Discharge Activity: Resume usual activity and Increase activity as tolerated Patient Instructions: Prednisone (By mouth) (Prednisone Intensol, Prednicot, Deltasone, Jeremiah), Amoxicillin/Clavulanate Potassium (By mouth) (Augmentin, Augmentin..., Levofloxacin (By mouth) (Levaquin, Levaquin Leva-ragini), Hypoxia (ED), Pneumonia (DC), Opioid Safety, Pneumonia Stoplight, Patient Portal & Ciara Instructions Activity Restrictions/Additional Instructions: Continue with oral Augmentin and Levaquin which are the antibiotics for next 5 days. Augmentin IV twice daily and Levaquin IV once daily. Prednisone likely steroid which is supposed to take twice daily for next 5 days. Follow-up with the primary care provider within next 1 week. Discharge Attestations Time Spent in Discharge Care*: greater than 30 min Specific Discharge Activities: educating patient, discussing with pcp/other providers, discussing with top case assembler/social workers/dc planners, documenting/other paperwork and evaluating patient/reviewing data Status at Discharge: Cognitive status at discharge: cognitively intact , Behavioral status at discharge: cooperative , Functional status at discharge: independent ambulation , Overall status at discharge: patient is back to baseline Quality Metrics Clinical Quality Measures [ No reported AMI, CVA or VTE this stay] Coding Level of Care Code 48804 Total time (in minutes) for Discharge: 65 Diagnoses Aspiration pneumonia of right lower lobe due to vomit J69.0 Aspiration pneumonia type: due to vomit Laterality: right Lung location: lower lobe of lung Pneumonia type: aspiration pneumonia Hypoxia R09.02 Flea infestation B88.2
[2024-10-03] MEDS: cefTRIAXone 1,000 mg SDV 1000 MG IVP (12:37)
[2024-10-04 11:50] LABS: HEP C RNA Viral Load Quant 6.97 Log IU/mL (NOT DETECTED); HEP C RNA Viral Load Quant 9300000 IU/mL (NOT DETECTED)
== END 2024-10-03 17:30 | disposition home or self-care (01) | DRG 177 ==
LOC: ER 16:59 → MEDSURG 17:21
PROVIDERS: Admitting Provider Student in an Organized Health Care Education/Training Program; Emergency Provider Emergency Medicine; Visit Provider Student in an Organized Health Care Education/Training Program
DX: J69.0 Pneumonitis due to inhalation of food and vomit (principal); J96.91 Respiratory failure, unspecified with hypoxia; W18.30XA Fall on same level, unspecified, initial encounter; B88.2 Other arthropod infestations; F15.10 Other stimulant abuse, uncomplicated; F11.10 Opioid abuse, uncomplicated; B19.20 Unspecified viral hepatitis C without hepatic coma; G89.29 Other chronic pain; M54.2 Cervicalgia; F17.210 Nicotine dependence, cigarettes, uncomplicated
CPT/HCPCS: 36415; 70450; 71045; 71260; 72125; 74230; 80053; 80061; 80306; 81001; 82607; 82746; 83036; 83540; 83550; 83605; 83735; 84100; 84145; 84443; 85025; 86403; 86705; 86706; 86709; 86803; 87040; 87340; 87449; 87522; 87806; 92610; 92611; 93005; 94640; 94664; 94669; 94760; 96365; 96372; 96375; 99285; J0456; J0696; J1650; J2270; J2405; J2919; J7030; J7040; J7050; J7626; J9999; Q0144